=== PATIENT | male | born 1975 | race Caucasian/White ===

== ENCOUNTER 2024-02-25 08:43 | Outpatient (CLI) | payer BC, SELFPAY ==
[2024-02-25 09:18] LABS: Hemoglobin 17.3 g/dL (14.0-18.0); Mean Corpuscular HGB Conc 34.6 g/dl (32-36); Mean Corpuscular Volume 92.4 fl (80-100); Mean Platelet Volume 10.7 fl (7.4-10.4); Platelet Count Result 214 k/mm3 (150-375); Red Blood Count 5.41 M/mm3 (4.6-6.20); Red Cell Distribution Width 12.7 % (11.5-14.5)
[2024-02-25 09:30] LABS: Alanine Aminotransferase 18 U/L (6-50); Albumin Level 4.5 g/dL (3.5-5.1); Alkaline Phosphatase 111 U/L (38-126); Anion Gap 8 mmol/L (4-12); Aspartate Amino Transferase 21 U/L (17-59); Bilirubin,Total 0.7 mg/dL (0.2-1.3); Blood Urea Nitrogen 23 mg/dL (9-20); Calcium 9.4 mg/dL (8.4-10.2); Carbon Dioxide 25 mmol/L (22-30); Chloride 105 mmol/L (98-107); Cholesterol 271 mg/dL (0-200); Estimated Glomerular Filt Rate > 60; Glucose 113 mg/dL (65-110); HDL Direct 45 mg/dL; Potassium 4.1 mmol/L (3.4-5.0); Sodium 138 mmol/L (137-145); Triglycerides 218 mg/dL (<150)
[2024-02-25 09:41] LABS: LDL Cholesterol Direct 165 mg/dL
[2024-02-25 10:00] LABS: Prostate Specific Antigen 0.3 ng/mL (< OR = 4.0)
== END 2024-02-25 08:44 | disposition home or self-care (01) ==
LOC: ANHLAB 08:45
PROVIDERS: PCP Nurse Practitioner Family; Visit Provider Nurse Practitioner Family
DX: Z12.5 Encounter for screening for malignant neoplasm of prostate (principal); Z13.220 Encounter for screening for lipoid disorders; N40.0 Benign prostatic hyperplasia without lower urinary tract symptoms; B35.1 Tinea unguium; Z13.29 Encounter for screening for other suspected endocrine disorder; K21.9 Gastro-esophageal reflux disease without esophagitis; Z72.0 Tobacco use
CPT/HCPCS: 36415; 80053; 80061; 84153; 84443; 85027; G0103

== ENCOUNTER 2024-04-26 01:27 | Day surgery (SDC) | payer BC, SELFPAY ==
[2024-04-18 08:44] VITALS: BMI 30.4
[2024-04-26 09:40] VITALS: BP 122/82; PULSE 81; RESP 20; TEMP 36.2; O2SAT 98
[2024-04-26] MEDS: LACTATED RINGERS 1,000 ML 150 ML IV CONT (09:49)
--- NOTE | 2024-04-26 10:36 | P.PNAN_ITS ---
Anes - Initial Pre Proc Eval Procedure: Operation Date: 04/26/24 11:00 Proposed Procedures p Esophagogastroduodenoscopy&Screen Colon - Vivek Bush MD Date/Time: 04/26/24 10:36 Surgeon: Vivek Bush MD Pre Op Diagnosis: GERD, Screening Colon Patient Data Age: 48 Gender: M Height: 1.73 m Weight: 93.6 kg Last Vital Signs Temp 36.2 C L 04/26/24 09:40 Pulse 81 04/26/24 09:40 Resp 20 04/26/24 09:40 BP 122/82 04/26/24 09:40 Pulse Ox 98 04/26/24 09:40 O2 Del Method Room Air 04/26/24 09:40 Allergies Allergy/AdvReac Type Severity Reaction Status Date / Time No Known Allergies Allergy Verified 04/26/24 09:34 Home Medications ?Medication ?Instructions ?Recorded ?Confirmed ?Type omeprazole 40 mg capsule,delayed See Rx Instructions .Route 04/19/24 04/26/24 Rx release .COMPLEX #90 caps tamsulosin 0.4 mg capsule See Rx Instructions .Route 04/19/24 Rx .COMPLEX #90 caps Patient hx anesthesia problems: none Family hx anesthesia problems: none Results Review: All pre-operative results and documents have been reviewed as part of the pre- operative evaluation. [facility] Past Medical History Medical History BMI 29.0-29.9,adult Surgical History Surgical History H/O hand surgery H/O neck surgery Family History Family History Father Heart disease Acute myocardial infarction Diverticulitis Mother Substance abuse Sibling No problems noted. Social History Social History Years smoked: 38 Smoking status: Current every day smoker Tobacco type: cigarettes Second hand tobacco smoke exposure: Yes Alcohol intake: current Substance use: current Substance use type: marijuana Other substance usage details: daily MJ use Living arrangements: with family Occupation/Education: occupation Additional occupation/education comments: [employer] Gender identity (if verbalized by the patient): Male Spiritual care concerns: No Anes - Eval Final PreProcedure Day of Procedure 04/26/24 10:36 Patient weight: obese Heart: regular rate and rhythm Lungs: decreased breath sounds Airway: Mallampati scale class II Neurological: alert and oriented Last oral intake: >/= 8 hours ASA classification: III Emergent: no Anesthetic plan: proceed Anesthesia type and monitoring: general GIVS and standard monitoring Results Review: All pre-operative results and documents have been reviewed as part of the pre- operative evaluation. Informed Consent: The patient's anesthetic plan and its attendant risks and benefits were discussed with the patient/family/POA. Questions were solicited and answers provided to the satisfaction of the patient/family/POA.
--- NOTE | 2024-04-26 11:23 | PM.IMHP ---
H&P: HPI History of Present Illness Date/Time: 04/26/24 11:23 Chief Complaint: Heartburn-screening colonoscopy. Narrative: The patient has complaining of almost daily heartburn episodes, most often associated with regurgitation. He denies dysphagia, nausea, vomiting or unintentional weight loss. In addition, he has also been referred for screening colonoscopy, which he never had before. There is no family history of colorectal cancer Review of Systems Review of Systems: All systems reviewed & are unremarkable except as noted in HPI and below PMFSH Past Medical History Medical History BMI 29.0-29.9,adult Surgical History Surgical History H/O hand surgery H/O neck surgery Family History Family History Father Heart disease Acute myocardial infarction Diverticulitis Mother Substance abuse Sibling No problems noted. Social History Social History Years smoked: 38 Smoking status: Current every day smoker Tobacco type: cigarettes Second hand tobacco smoke exposure: Yes Alcohol intake: current Substance use: current Substance use type: marijuana Other substance usage details: daily MJ use Living arrangements: with family Occupation/Education: occupation Additional occupation/education comments: [employer] Gender identity (if verbalized by the patient): Male Spiritual care concerns: No Meds Home Medications and Allergies Home Medications ?Medication ?Instructions ?Recorded ?Confirmed ?Type omeprazole 40 mg capsule,delayed See Rx Instructions .Route 04/19/24 04/26/24 Rx release .COMPLEX #90 caps tamsulosin 0.4 mg capsule See Rx Instructions .Route 04/19/24 Rx .COMPLEX #90 caps Allergies Allergy/AdvReac Type Severity Reaction Status Date / Time No Known Allergies Allergy Verified 04/26/24 09:34 Vital Signs Vital Signs - 24 hr 04/26/24 09:40 Temperature 97.1 F L Pulse Rate 81 Respiratory Rate 20 Blood Pressure 122/82 Pulse Oximetry 98 Oxygen Delivery Room Air Exam Const: General: cooperative and healthy appearing Resp: Effort & Inspection: normal respiratory effort and able to speak in complete sentences Auscultation: clear to auscultation bilaterally Cardio: Rate: regular rate Rhythm: regular rhythm GI: Inspection: normal to inspection GI Palp: No No hepatosplenomegaly present Auscultation: normal bowel sounds Rectal Exam: deferred Skin: General skin exam: normal color Psych: Appearance: grossly normal Mental Status: mental status grossly normal Assessment and Plan Assessment and plan (1) Gastroesophageal reflux disease: Qualifiers: Esophagitis presence: esophagitis presence not specified Qualified Code(s): K21.9 - Gastro-esophageal reflux disease without esophagitis Code(s): K21.9 - Gastro-esophageal reflux disease without esophagitis Status: Acute Assessment and Plan: The patient is deemed a good candidate for the procedures. Consent signed. Will proceed. (2) Encounter for screening colonoscopy: Code(s): Z12.11 - Encounter for screening for malignant neoplasm of colon Status: Acute
[2024-04-26] MEDS: BENZOCAINE (*SP) 60 ML SPRAY CAN (HURRICAINE) 1 SPRAY MUCOUS MEM (11:33)
--- NOTE | 2024-04-26 11:39 | SUR.OPER ---
EGD: [id number] COLON:1154
[2024-04-26 12:14] VITALS: BP 101/63; PULSE 63; RESP 19; O2SAT 94
[2024-04-26 12:24] VITALS: BP 106/69; PULSE 61; RESP 19; O2SAT 98
[2024-04-26 12:34] VITALS: BP 123/80; PULSE 67; RESP 20; O2SAT 95
== END 2024-04-26 12:56 | disposition home or self-care (01) ==
PROVIDERS: PCP Nurse Practitioner Family; Referring Provider Nurse Practitioner Family; Visit Provider Internal Medicine Gastroenterology
PROC: 0DJ08ZZ Inspection of Upper Intestinal Tract, Via Natural or Artificial Opening Endoscopic (ICD-10-PCS; CPT 43235; principal; 2024-04-26 11:00)
DX: Z12.11 Encounter for screening for malignant neoplasm of colon (principal); K64.8 Other hemorrhoids; K29.50 Unspecified chronic gastritis without bleeding; K44.9 Diaphragmatic hernia without obstruction or gangrene; K21.9 Gastro-esophageal reflux disease without esophagitis; F17.210 Nicotine dependence, cigarettes, uncomplicated; F12.90 Cannabis use, unspecified, uncomplicated; E66.9 Obesity, unspecified; Z98.890 Other specified postprocedural states; Z98.1 Arthrodesis status; Z82.49 Family history of ischemic heart disease and other diseases of the circulatory system; Z68.31 Body mass index [BMI] 31.0-31.9, adult
CPT/HCPCS: 45378; 43239; 88305; 88342; J2003; J2704; J7120